=== PATIENT | male | born 1990 | race African-American/Black ===

== ENCOUNTER 2017-05-23 01:13 | Emergency (ER) | payer MEDICAID, OTHER ==
[~2017-05-23] VITALS: Ht 182.9 cm; Wt 80.0 kg
[2017-05-23 01:56] LABS: HEMATOCRIT 44.5 % (39.2-51.8); HEMOGLOBIN 14.8 g/dL (13.7-18.0); WHITE BLOOD COUNT 6.5 x10^3/uL (3.4-10)
[2017-05-23 02:09] LABS: BLOOD UREA NITROGEN 13 mg/dL (7-18)
[2017-05-23 03:55] VITALS: BP 122/73
== END 2017-05-23 04:43 | disposition home or self-care (01) ==
LOC: ED 04:32
DX: F19.239 Other psychoactive substance dependence with withdrawal, unspecified (principal); R41.82 Altered mental status, unspecified; R40.1 Stupor; F17.200 Nicotine dependence, unspecified, uncomplicated
CPT/HCPCS: 36415; 80048; 80307; 82040; 85025; 99284

== ENCOUNTER 2017-05-25 13:43 | Emergency (ER) | payer MEDICAID, OTHER ==
[~2017-05-25] VITALS: Ht 185.4 cm; Wt 66.0 kg
[2017-05-25 13:50] VITALS: BP 150/100
[2017-05-25] MEDS ORDERED: BACITRACIN ZINC OINT 500U/GM, 0.9 GM ONE (14:14)
== END 2017-05-25 14:32 | disposition home or self-care (01) ==
LOC: ED 14:26
DX: T23.251A Burn of second degree of right palm, initial encounter (principal); T31.0 Burns involving less than 10% of body surface; X08.8XXA Exposure to other specified smoke, fire and flames, initial encounter; Y93.89 Activity, other specified; Y99.8 Other external cause status; Y92.009 Unspecified place in unspecified non-institutional (private) residence as the place of occurrence of the external cause; F17.210 Nicotine dependence, cigarettes, uncomplicated
CPT/HCPCS: 99283

== ENCOUNTER 2017-06-17 10:45 | Emergency (ER) | payer MEDICAID, OTHER ==
[~2017-06-17] VITALS: Ht 185.4 cm; Wt 74.0 kg
[2017-06-17 10:47] VITALS: BP 126/82
[2017-06-17] MEDS ORDERED: BACITRACIN ZINC OINT 500U/GM, 0.9 GM ONE ×2 (11:47→12:08)
== END 2017-06-17 12:50 | disposition home or self-care (01) ==
LOC: ED 12:41
DX: S60.222A Contusion of left hand, initial encounter (principal); S61.432A Puncture wound without foreign body of left hand, initial encounter; X58.XXXA Exposure to other specified factors, initial encounter; Y93.89 Activity, other specified; Y92.410 Unspecified street and highway as the place of occurrence of the external cause; Y99.9 Unspecified external cause status
CPT/HCPCS: 29125; 99284

== ENCOUNTER 2017-08-11 20:59 | Emergency (ER) | payer MEDICAID, OTHER ==
[~2017-08-11] VITALS: Ht 185.4 cm; Wt 76.7 kg
[2017-08-11 21:22] VITALS: BP 109/73
[2017-08-11] MEDS ORDERED: DOCUSATE 50 MG/5 ML ORAL SOL ONE (21:46)
[2017-08-11] MEDS ORDERED: DOCUSATE 50 MG/5 ML ORAL SOL OT ONE (22:00)
== END 2017-08-11 23:39 | disposition home or self-care (01) ==
LOC: ED 22:01
DX: H61.22 Impacted cerumen, left ear (principal); F19.10 Other psychoactive substance abuse, uncomplicated
CPT/HCPCS: 69209; 99282